=== PATIENT | male | born 1960 | race Caucasian/White ===

== ENCOUNTER 2016-05-10 01:06 | Inpatient (IN) | payer BC ==
[~2016-05-10] VITALS: Ht 170.2 cm; Wt 102.1 kg
[2016-05-10] VITALS (16 sets, daily range): BP systolic 106–144; RESP 16–34; TEMP 97.8–98.3; Ht 170.2 cm; Wt 102.1 kg
[2016-05-10] MEDS ORDERED: POTASSIUM CHLOR 10MEQ -ED ONLY 100 ML IV ONE (02:33)
[2016-05-10] MEDS ORDERED: SODIUM CHLORIDE 0.9% 0 ML IV ONE (02:39)
[2016-05-10] MEDS ORDERED: ONDANSETRON 4 MG VIAL ONE (02:39)
[2016-05-10] MEDS ORDERED: KCL CR 20 MEQ TAB PO ONE (02:39)
[2016-05-10] MEDS ORDERED: SODIUM CHLORIDE 0.9% 1,000 ML ONE (02:43)
[2016-05-10] MEDS ORDERED: SODIUM CHLORIDE 0.9% 250 ML IV ONE (03:00)
[2016-05-10] MEDS ORDERED: PANTOPRAZOLE 40 MG VIAL IV ONE (03:00)
[2016-05-10] MEDS ORDERED: SALINE FLUSH 10 ML FLUSH PRN (06:10)
[2016-05-10] MEDS ORDERED: GLUCAGON 1 MG VIAL IM PRN (06:15)
[2016-05-10] MEDS ORDERED: DEXTROSE 50% SYRINGE 50 ML IV PRN (06:15)
[2016-05-10] MEDS ORDERED: SODIUM CHLORIDE 0.9% 1,000 ML IV SCH ×2 (06:30→10:45)
[2016-05-10] MEDS: PANTOPRAZOLE 80 MG in SODIUM CHLORIDE 0.9% 250 ML IV SCH ×2 (06:30→16:37)
[2016-05-10] MEDS ORDERED: PROPOFOL 50ML PER ML IV ONE (07:44)
[2016-05-10] MEDS ORDERED: MIDAZOLAM 2 MG/2 ML INJ IV ONE (07:44)
[2016-05-10] MEDS ORDERED: LIDOCAINE 2% SYR 5 ML IV ONE (07:44)
[2016-05-10] MEDS: SALINE FLUSH 10 ML FLUSH SCH ×2 (08:00→22:57)
[2016-05-10] MEDS ORDERED: D5-1/2-NS W/KCL 40MEQ/L 1,000 ML IV SCH (10:55)
[2016-05-10] MEDS ORDERED: FOLIC ACID INJ 1 MG in SODIUM CHLORIDE 0.9% 50 ML IV ONE (12:10)
[2016-05-10] MEDS ORDERED: MULTIVITS ADULT INJ 10 ML in SODIUM CHLORIDE 0.9% 1,000 ML IV ONE (12:10)
[2016-05-10] MEDS ORDERED: LORAZEPAM 2 MG TAB PO PRN (12:10)
[2016-05-10] MEDS ORDERED: OCTREOTIDE IV ONE (13:25)
[2016-05-10] MEDS ORDERED: OCTREOTIDE IV SCH (14:00)
[2016-05-10] MEDS: MAGNESIUM SULF 1 GM/100 ML 100 ML IV SCH ×2 (15:17→16:26)
[2016-05-10] MEDS: LEVOFLOXACIN 750 MG/150 ML 150 ML IV SCH (17:47)
[2016-05-10] MEDS ORDERED: MISSING DOSE XX ONE (19:40)
[2016-05-10] MEDS: THIAMINE 100 MG in SODIUM CHLORIDE 0.9% 50 ML IV SCH (20:56)
[2016-05-10] MEDS: SODIUM CHLORIDE 0.9% IV SCH (22:54)
[2016-05-10] MEDS: OCTREOTIDE IV SCH (22:54)
[2016-05-10] MEDS ORDERED: GUAIFEN/DM 10 ML UDC PO PRN (23:35)
[2016-05-10] MEDS ORDERED: PROMETHAZINE 25 MG/ML VIAL IV PRN (23:35)
[2016-05-11] VITALS (10 sets, daily range): BP systolic 131–154; RESP 16–20; TEMP 97.8–98.8
[2016-05-11] MEDS: PANTOPRAZOLE 80 MG in SODIUM CHLORIDE 0.9% 250 ML IV SCH ×3 (03:31→22:51)
[2016-05-11] MEDS: SODIUM CHLORIDE 0.9% FLUSH BAG 500 ML IV SCH (06:40)
[2016-05-11] MEDS ORDERED: KCL CR 20 MEQ TAB PO STA (07:31)
[2016-05-11] MEDS ORDERED: MISSING DOSE XX ONE ×3 (08:15→16:45)
[2016-05-11] MEDS: SALINE FLUSH 10 ML FLUSH SCH ×2 (08:23→20:00)
[2016-05-11] MEDS: THIAMINE 100 MG in SODIUM CHLORIDE 0.9% 50 ML IV SCH (08:24)
[2016-05-11] MEDS ORDERED: KCL CR 20 MEQ TAB PO ONE (09:35)
[2016-05-11] MEDS: LEVOFLOXACIN 750 MG/150 ML 150 ML IV SCH (10:02)
[2016-05-11] MEDS: MULTIVITS/MINERALS (THERAGRAN M) TAB PO SCH (11:13)
[2016-05-11] MEDS: FOLIC ACID 1 MG TAB PO SCH (11:13)
[2016-05-11] MEDS: SODIUM CHLORIDE 0.9% IV SCH (15:24)
[2016-05-11] MEDS: OCTREOTIDE IV SCH (15:24)
[2016-05-11] MEDS: GUAIFEN/DM 10 ML UDC PO PRN (17:29)
[2016-05-12] MEDS: GUAIFEN/DM 10 ML UDC PO PRN ×5 (03:16→21:30)
[2016-05-12 03:52] VITALS: BP_SYST 160; RESP 20; TEMP 98.2
[2016-05-12] MEDS: SODIUM CHLORIDE 0.9% FLUSH BAG 500 ML IV SCH (06:17)
[2016-05-12 07:30] VITALS: BP_SYST 130; RESP 15; TEMP 98.4
[2016-05-12] MEDS: LEVOFLOXACIN 750 MG/150 ML 150 ML IV SCH (09:11)
[2016-05-12] MEDS: PANTOPRAZOLE 80 MG in SODIUM CHLORIDE 0.9% 250 ML IV SCH (09:11)
[2016-05-12] MEDS ORDERED: KCL CR 20 MEQ TAB PO STA (09:44)
[2016-05-12] MEDS ORDERED: POTASSIUM PHOSPHATE 45 MMOL in SODIUM CHLORIDE 0.9% 500 ML IV ONE (09:45)
[2016-05-12] MEDS ORDERED: MISSING DOSE XX ONE ×2 (10:30→13:25)
[2016-05-12] MEDS: MULTIVITS/MINERALS (THERAGRAN M) TAB PO SCH (10:33)
[2016-05-12] MEDS: FOLIC ACID 1 MG TAB PO SCH (11:30)
[2016-05-12] MEDS: LEVOTHYROXINE 0.15 MG TAB PO SCH (11:30)
[2016-05-12] MEDS ORDERED: KCL CR 20 MEQ TAB PO ONE (11:45)
[2016-05-12] MEDS: MAGNESIUM SULF 1 GM/100 ML 100 ML IV SCH ×2 (12:32→13:49)
[2016-05-12] MEDS: SPIRONOLACTONE 25 MG TAB PO SCH (12:33)
[2016-05-12] MEDS: Furosemide 20 MG TAB PO SCH (12:34)
[2016-05-12] MEDS: SALINE FLUSH 10 ML FLUSH SCH ×2 (12:34→21:30)
[2016-05-12] MEDS: OCTREOTIDE IV SCH (13:49)
[2016-05-12] MEDS: SODIUM CHLORIDE 0.9% IV SCH (13:49)
[2016-05-12 15:13] VITALS: BP_SYST 135; RESP 15; TEMP 98.6
[2016-05-12] MEDS: PANTOPRAZOLE 40 MG TAB PO SCH (15:52)
[2016-05-12] MEDS: THIAMINE 100 MG in SODIUM CHLORIDE 0.9% 50 ML IV SCH (15:55)
[2016-05-12 19:37] VITALS: BP_SYST 138; RESP 16; TEMP 97.7
[2016-05-12] MEDS ORDERED: Atorvastatin 20 MG TAB PO SCH (21:00)
[2016-05-12 22:54] VITALS: BP_SYST 132; RESP 16; TEMP 97.7
[2016-05-13] MEDS: GUAIFEN/DM 10 ML UDC PO PRN ×2 (02:57→06:34)
[2016-05-13 03:50] VITALS: BP_SYST 146; RESP 18; TEMP 97.6
[2016-05-13] MEDS: LEVOTHYROXINE 0.15 MG TAB PO SCH (06:34)
[2016-05-13] MEDS: PANTOPRAZOLE 40 MG TAB PO SCH (06:34)
[2016-05-13 07:23] VITALS: BP_SYST 146; RESP 18; TEMP 97.3
[2016-05-13] MEDS: SPIRONOLACTONE 25 MG TAB PO SCH (09:00)
[2016-05-13] MEDS ORDERED: LEVOFLOXACIN 750 MG TAB PO SCH (09:00)
[2016-05-13] MEDS: Furosemide 20 MG TAB PO SCH (09:00)
[2016-05-13] MEDS: MULTIVITS/MINERALS (THERAGRAN M) TAB PO SCH (09:32)
[2016-05-13] MEDS: SODIUM CHLORIDE 0.9% FLUSH BAG 500 ML IV SCH (09:35)
[2016-05-13] MEDS: SALINE FLUSH 10 ML FLUSH SCH (09:36)
[2016-05-13] MEDS: THIAMINE 100 MG in SODIUM CHLORIDE 0.9% 50 ML IV SCH (09:39)
[2016-05-13] MEDS ORDERED: KCL CR 20 MEQ TAB PO ONE (10:00)
[2016-05-13] MEDS ORDERED: MISSING DOSE XX ONE (10:40)
[2016-05-13 10:54] VITALS: BP_SYST 146; RESP 18; TEMP 97.3
[2016-05-13 11:11] VITALS: BP_SYST 120; RESP 16; TEMP 98
== END 2016-05-13 12:01 | disposition home or self-care (01) | DRG 377 ==
LOC: ENRESERV → ENRESERVDT → ENRESERVTM → ER 01:06 → EMR 06:18 → 4THE 16:01 → 5THE 05-11 22:43
PROVIDERS: ADMIT Internal Medicine; ATTEND Internal Medicine
PROC: 0W3P8ZZ Control Bleeding in Gastrointestinal Tract, Via Natural or Artificial Opening Endoscopic (ICD-10-PCS; principal; 2016-05-10 12:43)
CPT/HCPCS: 36415; 71010; 76700; 80053; 80074; 82274; 82553; 82947; 83735; 83880; 84100; 84439; 84443; 84484; 85014; 85018; 85025; 85610; 85730; 86850; 86900; 86901; 93005; 96361; 96365; 96366; 96367; 96375; 99222; 99232; 99233; 99238